=== PATIENT | male | born 1980 | race Caucasian/White ===

== ENCOUNTER 2022-04-16 11:38 | Day surgery (SDC) | payer BC ==
[~2022-04-16 11:38] MED LIST: Lactated Ringers 1,000 ML IV SCH
[2022-04-16] MEDS ORDERED: Bupivacaine 0.25%/EPINEPHrine 1:200,000 10 ML SDV ONE (11:51)
[2022-04-16] MEDS ORDERED: ceFAZolin 2 GM in Premix Bag 1 BAG IV SCH (12:00)
[2022-04-16] MEDS ORDERED: fentaNYL 250 MCG/5 ML SDV ONE (12:07)
[2022-04-16] MEDS ORDERED: Propofol 200 MG/20 ML SDV ONE (12:07)
[2022-04-16] MEDS ORDERED: Metoclopramide 10 MG/2 ML SDV IVPUSH PRN (12:26)
[2022-04-16] MEDS ORDERED: Albuterol 0.083% 2.5 MG/3 ML Neb Soln NEB PRN (12:26)
[2022-04-16] MEDS ORDERED: Naloxone 0.4 MG/ML SDV IVPUSH PRN (12:26)
[2022-04-16] MEDS ORDERED: fentaNYL 50 MCG/ML SDV IVPUSH PRN (12:26)
[2022-04-16] MEDS ORDERED: HYDROmorphone 1 MG/ML Syringe IVPUSH PRN (12:26)
[2022-04-16] MEDS ORDERED: Ondansetron 4 MG/2 ML SDV IVPUSH PRN (12:26)
== END 2022-04-16 15:05 | disposition home or self-care (01) ==
LOC: MW.SDS 11:38
PROVIDERS: ATTEND Orthopaedic Surgery
DX: M23.41 Loose body in knee, right knee (principal); M25.362 Other instability, left knee; F41.9 Anxiety disorder, unspecified; G47.00 Insomnia, unspecified; Z98.890 Other specified postprocedural states
CPT/HCPCS: 29874; J0131; J0690; J2704; J3010; J3490; J7120; 01400

== ENCOUNTER 2023-12-04 04:49 | Emergency (ER) | payer BC ==
[2023-12-04] MEDS: Clindamycin HCl 150 MG Cap PO ONE (05:05)
[2023-12-04] MEDS: predniSONE 20 MG Tab PO ONE (05:05)
== END 2023-12-04 05:19 | disposition home or self-care (01) ==
LOC: MW.ED 04:49
DX: J03.00 Acute streptococcal tonsillitis, unspecified (principal); Z75.8 Other problems related to medical facilities and other health care
CPT/HCPCS: 99283; A9270

== ENCOUNTER 2024-04-01 10:32 | Emergency (ER) | payer BC ==
[2024-04-01] MEDS: Lidocaine 2% Viscous Solution 15 ML UD PO ONE (11:04)
[2024-04-01] MEDS: Ibuprofen 800 MG Tab PO ONE (11:04)
[2024-04-01] MEDS: Acetaminophen 500 MG Tab PO ONE (11:04)
== END 2024-04-01 11:51 | disposition home or self-care (01) ==
LOC: MW.ED 10:32
DX: J02.0 Streptococcal pharyngitis (principal); Z75.8 Other problems related to medical facilities and other health care
CPT/HCPCS: 87651; 96372; 99283; A9270; J1100